=== PATIENT | female | born 1940 | race Caucasian/White ===

== ENCOUNTER 2017-08-07 07:56 | Inpatient (IN) | payer MEDICARE ==
[2017-08-07] VITALS (7 sets, daily range): BP systolic 123–167; BP diastolic 58–90; PULSE 56–71; RESP 14–19; TEMP 97.3–97.9; O2SAT 94–100
[~2017-08-07] VITALS: Ht 167.6 cm; Wt 81.0 kg
--- NOTE | 2017-08-07 08:12 | PD ---
HPI Chief Complaint: Fall Time Seen by Provider: 08:04 Travel History International Travel<30 days: No Contact w/Intl Traveler<30days: No Traveled to known affect area: No History of Present Illness HPI 76 y/o female presents after she states she slipped and fell on water. She states she did not hit her head or blackout. She denies taking blood thinners. She states she did hit her right elbow and is having significant pain there. She denies any other concurrent complaints. Quality pain is sharp. Severity is severe. Pain is worse with movement. She denies other modifying factors. PFSH Past Medical History Narrative Medical Hypertension, high cholesterol, hypothyroid Past Surgical History Narrative Surgical Right elbow Social History Tobacco Use: No Allergies-Medications (Allergen,Severity, Reaction): Coded Allergies: No Known Allergies (Unverified , 08/07/17) Reported Meds & Prescriptions Reported Meds & Active Scripts Active Reported [glaucoma eye gtt] Aspirin Low Dose (Aspirin) 81 Mg Chew 81 Mg CHEW DAILY Atorvastatin (Atorvastatin Calcium) 10 Mg Tab 10 Mg PO HS [unknown bp med] Synthroid (Levothyroxine Sodium) 50 Mcg Tab 50 Mcg PO DAILY Review of Systems Except as stated in HPI: all other systems reviewed are Neg Physical Exam Narrative General: 76 y/o patient in no apparent distress Skin: Warm and dry Eyes: Pupils equal, eomi ENT: no septal hematoma NECK: no pain with palpation, nexus criteria negative Cardiovascular: Regular rate and rhythm Respiratory: Normal respiratory effort noted, clear to auscultation bilaterally Abdomen: soft, nontender, nondistended Back: No step-offs, midline spine nontender with palpation Extremities: Pain with palpation of right elbow, no lacerations over, neurovascularly intact, no pain with palpation of other joints Neuro: awake, alert, sensation and motor grossly intact Data Data Last Documented VS Vital Signs Date Time Temp Pulse Resp B/P (MAP) Pulse Ox O2 Delivery O2 Flow Rate FiO2 08/07/17 09:22 66 14 167/76 (106) 96 Room Air 08/07/17 07:58 97.4 Orders Orders Elbow, Limited (Ap&Lat) (08/07/17 ) Complete Blood Count With Diff (08/07/17 08:49) Iv Access Insert/Monitor (08/07/17 08:49) Oximetry (08/07/17 08:49) Ecg Monitoring (08/07/17 08:49) Morphine Inj (Morphine Inj) (08/07/17 09:00) Ondansetron Inj (Zofran Inj) (08/07/17 09:00) Sodium Chloride 0.9% Flush (Ns Flush) (08/07/17 09:00) Basic Metabolic Panel (Bmp) (08/07/17 08:49) Splint Or Brace Apply/Monitor (08/07/17 09:15) Electrocardiogram (08/07/17 10:09) Chest, Single Ap (08/07/17 10:09) Morphine Inj (Morphine Inj) (08/07/17 10:30) Admit Order (Ed Use Only) (08/07/17 10:44) Labs Laboratory Tests Test 08/07/17 09:04 White Blood Count 7.9 TH/MM3 Red Blood Count 4.67 MIL/MM3 Hemoglobin 14.2 GM/DL Hematocrit 40.7 % Mean Corpuscular Volume 87.2 FL Mean Corpuscular Hemoglobin 30.5 PG Mean Corpuscular Hemoglobin Concent 35.0 % Red Cell Distribution Width 13.6 % Platelet Count 225 TH/MM3 Mean Platelet Volume 8.2 FL Neutrophils (%) (Auto) 63.9 % Lymphocytes (%) (Auto) 28.9 % Monocytes (%) (Auto) 5.5 % Eosinophils (%) (Auto) 1.2 % Basophils (%) (Auto) 0.5 % Neutrophils # (Auto) 5.0 TH/MM3 Lymphocytes # (Auto) 2.3 TH/MM3 Monocytes # (Auto) 0.4 TH/MM3 Eosinophils # (Auto) 0.1 TH/MM3 Basophils # (Auto) 0.0 TH/MM3 CBC Comment DIFF FINAL Differential Comment Blood Urea Nitrogen 17 MG/DL Creatinine 0.94 MG/DL Random Glucose 133 MG/DL Calcium Level 8.7 MG/DL Sodium Level 140 MEQ/L Potassium Level 3.5 MEQ/L Chloride Level 105 MEQ/L Carbon Dioxide Level 28.9 MEQ/L Anion Gap 6 MEQ/L Estimat Glomerular Filtration Rate 58 ML/MIN MDM Medical Decision Making Medical Screen Exam Complete: Yes Emergency Medical Condition: Yes Medical Record Reviewed: Yes (Past history confirmed) Interpretation(s) CBC & BMP Diagram 08/07/17 09:04 Calcium Level 8.7 Last 24 hours Impressions Elbow X-Ray 4/5/18 0000 Signed Impressions: Service Date/Time: August 08:28 - CONCLUSION: 1. There appears to be transcondylar fixation with an osseous screw and 2 osseous pains. 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 2. Superimposed acute fracture through the distal humeral metadiaphysis. Fracture fragments are in bayonet apposition. Godfrey Latham MD Differential Diagnosis Fracture, strain, sprain, dislocation Narrative Course Will check x-ray and reevaluate given xray will place splint, dose with morphine and discuss with orthopedic physician while checking preop blood work Patient updated and agrees to admission for surgery tomorrow Physician Communication Physician Communication dr patel states to admit to medicine and npo after midnight dr marinelli agrees to admit Diagnosis Primary Impression: Closed fracture of right distal humerus Qualified Codes: S42.401A - Unspecified fracture of lower end of right humerus , initial encounter for closed fracture Admitting Information Admitting Physician Requests: Admit Terra Velasquez MD Aug 07, 2017 08:12
--- NOTE | 2017-08-07 08:47 | RADRPT ---
EXAM DATE/TIME: 08/07/2017 08:28 [facility] COMPARISON: No previous studies available for comparison. INDICATIONS : Right elbow pain. Patient fell in the shower this morning. MEDICAL HISTORY : None. SURGICAL HISTORY : Right elbow. ENCOUNTER: Initial ACUITY: 1 day PAIN SCORE: 8/10 LOCATION: Right elbow. FINDINGS: Two view examination of the right elbow demonstrates a transcondylar osseous screw and 2 osseous pain s oriented in a similar direction. Degenerative changes in the elbow joint with loss of joint space a nd marginal spurring. However, there appears to be an acute fracture through the humeral metadiaphysi s with bayonet apposition of the fracture fragments. CONCLUSION: 1. There appears to be transcondylar fixation with an osseous screw and 2 osseous pains. Chronic oste oarthritic changes in the elbow joint itself. 2. Superimposed acute fracture through the distal humeral metadiaphysis. Fracture fragments are in ba yonet apposition. Godfrey Latham MD on August 07, 2017 at 8:43 Board Certified Radiologist. This report was verified electronically.
[2017-08-07] MEDS ORDERED: ONDANSETRON HCL 4 MG/2 ML VIAL IVP ONE (09:00)
[2017-08-07] MEDS ORDERED: SODIUM CHLORIDE 0.9% FLUSH 10 ML FLUSH IVF PRN (09:00)
[2017-08-07] MEDS ORDERED: MORPHINE SULFATE 4 MG/ML INJ IV PUSH ONE ×2 (09:00→10:30)
[2017-08-07] MEDS ORDERED: ATOR10TA15 PO (09:27)
[2017-08-07] MEDS ORDERED: EYE (09:27)
[2017-08-07] MEDS ORDERED: ASPI81CH6 CHEW (09:27)
[2017-08-07] MEDS ORDERED: unknown bp med (09:27)
[2017-08-07] MEDS ORDERED: LEVO.05 PO (09:27)
[2017-08-07 09:34] LABS: BASOPHIL % 0.5 % (0.0-2.0); EOSINOPHIL # 0.1 TH/MM3 (0-0.4); EOSINOPHIL % 1.2 % (0.0-4.0); HEMATOCRIT 40.7 % (35.0-46.0); HEMOGLOBIN 14.2 GM/DL (11.6-15.3); LYMPH % 28.9 % (9.0-44.0); LYMPHOCYTE # 2.3 TH/MM3 (1.0-4.8); MEAN CELL VOLUME 87.2 FL (80.0-100.0); MEAN CORPUSCULAR HEMOGLOBIN 30.5 PG (27.0-34.0); MEAN PLATELET VOLUME 8.2 FL (7.0-11.0); MONO % 5.5 % (0.0-8.0); MONOCYTE # 0.4 TH/MM3 (0-0.9); NEUT % 63.9 % (16.0-70.0); PLATELET COUNT 225 TH/MM3 (150-450); RED BLOOD COUNT 4.67 MIL/MM3 (4.00-5.30); RED CELL DISTRIBUTION WIDTH 13.6 % (11.6-17.2); WHITE BLOOD COUNT 7.9 TH/MM3 (4.0-11.0)
[2017-08-07 09:57] LABS: BICARBONATE 28.9 MEQ/L (21.0-32.0); CALCIUM 8.7 MG/DL (8.5-10.1); CREATININE 0.94 MG/DL (0.50-1.00)
--- NOTE | 2017-08-07 10:51 | RADRPT ---
EXAM DATE/TIME: 08/07/2017 10:12 [facility] COMPARISON: No previous studies available for comparison. INDICATIONS : Evaluate for pneumonia, pneumothorax, and communicable disease. Preop for elbow fracture. MEDICAL HISTORY : None. SURGICAL HISTORY : Right elbow repair. ENCOUNTER: Initial ACUITY: 1 day PAIN SCORE: 9/10 LOCATION: Right elbow FINDINGS: A single view of the chest demonstrates the lungs to be symmetrically aerated without evidence of mas s, infiltrate or effusion. There is some mild indistinctness of the central bronchopulmonary marking s without evidence of peribronchial thickening suggesting an interstitial process. The cardiomediast inal contours are unremarkable. Osseous structures are intact. CONCLUSION: Mild interstitial prominence in the central 3rd of both lungs without evidence of peribronchial thick ening. No evidence of consolidative infiltrates. Giovanni Love MD on August 07, 2017 at 10:48 Board Certified Radiologist. This report was verified electronically.
[2017-08-07] MEDS ORDERED: LACTULOSE SYRUP 20 GM/30 ML CUP PO PRN (13:45)
[2017-08-07] MEDS ORDERED: MORPHINE SULFATE 2 MG/ML SYRINGE IV PUSH PRN (13:45)
[2017-08-07] MEDS ORDERED: MAGNESIUM HYDROXIDE SUSP 30 ML CUP PO PRN (13:45)
[2017-08-07] MEDS ORDERED: MORPHINE SULFATE 4 MG/ML INJ IV PUSH PRN (13:45)
[2017-08-07] MEDS ORDERED: ONDANSETRON HCL 4 MG/2 ML VIAL IVP PRN (13:45)
[2017-08-07] MEDS ORDERED: SENNOSIDES 8.6 MG TAB PO PRN (13:45)
[2017-08-07] MEDS ORDERED: SODIUM CHLORIDE 0.9% FLUSH 10 ML FLUSH IV FLUSH PRN (13:45)
[2017-08-07] MEDS ORDERED: NALOXONE HCL 0.4 MG/ML AMP IV PUSH PRN (13:45)
[2017-08-07] MEDS ORDERED: ACETAMINOPHEN 325 MG TAB PO PRN (13:45)
[2017-08-07] MEDS ORDERED: BISACODYL 10 MG SUPP RECTAL PRN (13:45)
[2017-08-07] MEDS ORDERED: ACETAMINOPHEN/HYDROcodone 325 MG/5 MG TAB PO PRN (15:30)
[2017-08-07] MEDS: ACETAMINOPHEN/HYDROcodone 325 MG/5 MG TAB PO PRN ×2 (16:39→20:32)
--- NOTE | 2017-08-07 20:14 | HHI.HP ---
HPI Service [facility] Primary Care Physician No Primary Care Physician Admission Diagnosis right distal humerus fracture Diagnoses: Chief Complaint: Right elbow pain Travel History International Travel<30 Days: No Contact w/Intl Traveler <30 Da: No Traveled to Known Affected Are: No History of Present Illness This is a 76-year-old female with past medical history significant for hypertension, hypothyroidism and hyperlipidemia who presents to [facility] after she slipped and fell on the wet floor. The patient states that she slipped on the wet floor and fell over her right elbow. The patient denies hitting her head or losing consciousness. The patient landed on her right arm elbow and had immediate severe, throbbing, nonradiating pain associated with swelling in the right elbow. The patient was seen in the emergency department and pain medication administered there, x-rays revealed a right distal humerus fracture. The patient denies chest pain, shortness of breath, fevers, chills, cough, dysuria, nausea, vomiting. Review of Systems As per HPI, other systems reviewed by me and negative Past Family Social History Past Medical History Hypertension Hyperlipidemia Hypothyroidism Past Surgical History Right elbow ORIF Reported Medications Reported Meds & Active Scripts Active Hydrocodone-Acetaminophen 10-325 mg Tab 1 Tab PO Q4H PRN Calcium 600+D 200 (Calcium Carbonate-Vitamin D) 600-200 Mg-Unit Tab 1 Tab PO BID Ergocalciferol 50,000 Unit Cap 50,000 Units PO Q7D Reported Latanoprost Opth Drops (Latanoprost) 0.005% Drops 1 Drop EACH EYE HS Refrigerate until opened. Aspirin Low Dose (Aspirin) 81 Mg Chew 81 Mg CHEW DAILY Atorvastatin (Atorvastatin Calcium) 10 Mg Tab 10 Mg PO HS [unknown bp med] Synthroid (Levothyroxine Sodium) 50 Mcg Tab 50 Mcg PO DAILY Allergies: Coded Allergies: No Known Allergies (Unverified , 08/07/17) Active Ordered Medications Current Medications Medications (Trade) Dose Ordered Sig/Froylan Route Start Time Stop Time Status Last Admin (NS Flush) 2 ml UNSCH PRN IV FLUSH 08/07/17 13:45 (NS Flush) 2 ml BID IV FLUSH 4/5/18 21:00 08/08/17 08:01 (Tylenol) 650 mg Q4H PRN PO 08/07/17 13:45 (Zofran Inj) 4 mg Q6H PRN IVP 08/07/17 13:45 (Narcan Inj) 0.4 mg UNSCH PRN IV PUSH 08/07/17 13:45 (Alicia-Colace) 1 tab BID PO 08/07/17 21:00 08/07/17 20:32 (Milk Of Magnesia Liq) 30 ml Q12H PRN PO 08/07/17 13:45 (Senokot) 17.2 mg Q12H PRN PO 08/07/17 13:45 (Dulcolax Supp) 10 mg DAILY PRN RECTAL 08/07/17 13:45 (Lactulose Liq) 30 ml DAILY PRN PO 08/07/17 13:45 (Lipitor) 10 mg HS PO 08/07/17 21:00 08/07/17 22:21 (Synthroid) 50 mcg DAILY@0600 PO 08/08/17 06:00 08/08/17 05:15 Lactated Ringer's 1,000 ml @ 30 mls/hr Q24H PRN IV 08/08/17 00:30 08/11/17 00:29 Sodium Chloride 500 ml @ 30 mls/hr [id number] PRN IV 08/08/17 00:30 08/11/17 00:29 (Betadine 5% Antisepsis Kit) 1 applic [employer] PRN EACH NARE 08/08/17 00:30 08/11/17 00:29 (Chlorhexidine 2% Cloth) 3 pack [employer] PRN TOPICAL 08/08/17 00:30 08/11/17 00:29 (Peerless 10-325 Mg) 1 tab Q3H PRN PO 08/08/17 12:15 (Morphine Inj) 4 mg Q3H PRN IV PUSH 08/08/17 14:00 (Oscal-D 250-125) 250 mg Q12HR PO 08/08/17 21:00 (Vitamin D3) 1,000 units DAILY PO 08/09/17 09:00 Miscellaneous Information ALL NURSING DEPARTME... UNSCH PRN .XX 08/08/17 12:45 08/09/17 12:44 Cefazolin Sodium 2000 mg/Sodium Chloride 120 ml @ 240 mls/hr Q8H IV 08/08/17 18:00 08/09/17 10:29 Family History Patient's father had prostate cancer. Patient had a brother that from colon cancer. Different brother from stomach cancer. Social History Patient denies smoking. The patient drinks occasional alcohol. The patient denies any illicit drug use. Physical Exam Vital Signs Vital Signs Date Time Temp Pulse Resp B/P (MAP) Pulse Ox O2 Delivery O2 Flow Rate FiO2 08/07/17 17:39 18 08/07/17 14:48 97.3 64 18 129/61 (83) 96 08/07/17 14:29 08/07/17 14:17 97.7 71 19 163/87 (112) 100 Room Air 2.00 08/07/17 09:22 66 14 167/76 (106) 96 Room Air 08/07/17 08:06 97 Room Air 08/07/17 08:06 69 18 98 Room Air 08/07/17 07:58 97.4 70 16 148/90 (109) Physical Exam GENERAL: This is a well-nourished, well-developed patient, in no apparent distress. SKIN: No rashes, ecchymoses or lesions. Cool and dry. HEAD: Atraumatic. Normocephalic. No temporal or scalp tenderness. EYES: Pupils equal round and reactive. Extraocular motions intact. No scleral icterus. No injection or drainage. ENT: Nose without bleeding, purulent drainage or septal hematoma. Throat without erythema, tonsillar hypertrophy or exudate. Uvula midline. Airway patent. NECK: Trachea midline. No JVD or lymphadenopathy. Supple, nontender, no meningeal signs. CARDIOVASCULAR: Regular rate and rhythm without murmurs, gallops, or rubs. RESPIRATORY: Clear to auscultation. Breath sounds equal bilaterally. No wheezes , rales, or rhonchi. GASTROINTESTINAL: Abdomen soft, non-tender, nondistended. No hepato-splenomegaly , or palpable masses. No guarding. MUSCULOSKELETAL: Right arm is swollen and wrapped. The patient has intact sensation to her fingers and good capillary refill in all fingers. Patient has pain on right elbow motion. Other extremities without clubbing, cyanosis, or edema. No joint tenderness, effusion, or edema noted. No calf tenderness. Negative Homans sign bilaterally. NEUROLOGICAL: Awake and alert. Cranial nerves II through XII intact. Motor and sensory grossly within normal limits. Five out of 5 muscle strength in all muscle groups. Normal speech. Laboratory Laboratory Tests Test 08/07/17 09:04 White Blood Count 7.9 Red Blood Count 4.67 Hemoglobin 14.2 Hematocrit 40.7 Mean Corpuscular Volume 87.2 Mean Corpuscular Hemoglobin 30.5 Mean Corpuscular Hemoglobin Concent 35.0 Red Cell Distribution Width 13.6 Platelet Count 225 Mean Platelet Volume 8.2 Neutrophils (%) (Auto) 63.9 Lymphocytes (%) (Auto) 28.9 Monocytes (%) (Auto) 5.5 Eosinophils (%) (Auto) 1.2 Basophils (%) (Auto) 0.5 Neutrophils # (Auto) 5.0 Lymphocytes # (Auto) 2.3 Monocytes # (Auto) 0.4 Eosinophils # (Auto) 0.1 Basophils # (Auto) 0.0 CBC Comment DIFF FINAL Differential Comment Blood Urea Nitrogen 17 Creatinine 0.94 Random Glucose 133 Calcium Level 8.7 Sodium Level 140 Potassium Level 3.5 Chloride Level 105 Carbon Dioxide Level 28.9 Anion Gap 6 Estimat Glomerular Filtration Rate 58 Result Diagram: 08/07/17 0904 08/07/17 0904 Imaging Last Impressions Chest X-Ray 08/07/17 1009 Signed Impressions: Service Date/Time: August 10:12 - CONCLUSION: Mild interstitial prominence in the central 3rd of both lungs without evidence of peribronchial thickening. No evidence of consolidative infiltrates. Giovanni Love MD Elbow X-Ray 08/07/17 0000 Signed Impressions: Service Date/Time: August 08:28 - CONCLUSION: 1. There appears to be transcondylar fixation with an osseous screw and 2 osseous pains. 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 2. Superimposed acute fracture through the distal humeral metadiaphysis. Fracture fragments are in bayonet apposition. MD Sintia Cameron VTE Risk Assessment Caprini VTE Risk Assessment: Mod/High Risk (score >= 2) Caprini Risk Assessment Model Point Value = 1 Point Value = 2 Point Value = 3 Point Value = 5 Age 41-60 Minor surgery BMI > 25 kg/m2 Swollen legs Varicose veins or History of unexplained or recurrent spontaneous Oral contraceptives or hormone replacement Sepsis (< 1 month) Serious lung disease, including pneumonia (< 1 month) Abnormal pulmonary function Acute myocardial infarction Congestive heart failure (< 1 month) History of inflammatory bowel disease Medical patient at bed rest Age 61-74 Arthroscopic surgery Major open surgery (> 45 min) Laparoscopic surgery (> 45 min) Malignancy Confined to bed (> 72 hours) Immobilizing plaster cast Central venous access Age >= 75 History of VTE Family history of VTE Factor V Leiden Prothrombin [id number] Lupus anticoagulant Anticardiolipin antibodies Elevated serum homocysteine Heparin-induced thrombocytopenia Other congenital or acquired thrombophilia Stroke (< 1 month) Elective arthroplasty Hip, pelvis, or leg fracture Acute spinal cord injury (< 1 month) Prophylaxis Regimen Total Risk Factor Score Risk Level Prophylaxis Regimen 0-1 Low Early ambulation 2 Moderate Order ONE of the following: *Sequential Compression Device (SCD) *Heparin 5000 units SQ BID 3-4 Higher Order ONE of the following medications: *Heparin 5000 units SQ TID *Enoxaparin/Lovenox 40 mg SQ daily (WT < 150 kg, CrCl > 30 mL/min) *Enoxaparin/Lovenox 30 mg SQ daily (WT < 150 kg, CrCl > 10-29 mL/min) *Enoxaparin/Lovenox 30 mg SQ BID (WT < 150 kg, CrCl > 30 mL/min) AND/OR *Sequential Compression Device (SCD) 5 or more Highest Order ONE of the following medications: *Heparin 5000 units SQ TID (Preferred with Epidurals) *Enoxaparin/Lovenox 40 mg SQ daily (WT < 150 kg, CrCl > 30 mL/min) *Enoxaparin/Lovenox 30 mg SQ daily (WT < 150 kg, CrCl > 10-29 mL/min) *Enoxaparin/Lovenox 30 mg SQ BID (WT < 150 kg, CrCl > 30 mL/min) AND *Sequential Compression Device (SCD) Assessment and Plan Problem List: (1) Closed fracture of right distal humerus ICD Code: S42.401A - Unspecified fracture of lower end of right humerus, initial encounter for closed fracture Status: Acute Plan: Orthopedic surgery consulted. Keep n.p.o. at midnight. 4 OR in a.m. We will provide pain control with oral opiates and IV morphine. (2) Hypothyroidism ICD Code: E03.9 - Hypothyroidism, unspecified Plan: Continue levothyroxine. Follow-up TSH as an outpatient. (3) Glaucoma ICD Code: H40.9 - Unspecified glaucoma Plan: Seems to be stable. Continue latanoprost eyedrops. (4) Hyperlipidemia ICD Code: E78.5 - Hyperlipidemia, unspecified Plan: Continue statin. Lipid profile could be checked and followed up as an outpatient. (5) HTN (hypertension) ICD Code: I10 - Essential (primary) hypertension Plan: The patient states that she was previously on medications, however she was taken off because her blood pressure was doing so well of antihypertensive medications. Assessment and Plan DVT prophylaxis: SCDs, no chemoprophylaxis given upcoming surgery. Code Status Full code Discussed Condition With Patient, ED physician Physician Certification 2 Midnight Certification Type: Admission for Inpatient Services Order for Inpatient Services The services are ordered in accordance with Medicare regulations or non- Medicare payer requirements, as applicable. In the case of services not specified as inpatient-only, they are appropriately provided as inpatient services in accordance with the 2-midnight benchmark. Estimated LOS (days): 2 days is the estimated time the patient will need to remain in the hospital, assuming treatment plan goals are met and no additional complications. Post-Hospital Plan: Not yet determined Problem Qualifiers (1) Closed fracture of right distal humerus: Qualified Codes: S42.401A - Unspecified fracture of lower end of right humerus , initial encounter for closed fracture (2) HTN (hypertension): Qualified Codes: I10 - Essential (primary) hypertension Carter Uriostegui MD Aug 07, 2017 20:14
--- NOTE | 2017-08-07 20:28 | EKG ---
Date Performed: 08/07/2017 Time Performed: 11:58:31 PTAGE: 76 years EKG: Sinus rhythm NONSPECIFIC ST & T-WAVE ABNORMALITY BORDERLINE ECG NO PREVIOUS TRACING DOCTOR: Danny Solorio Interpretating Date/Time 08/07/2017 20:27:21
[2017-08-07] MEDS: SODIUM CHLORIDE 0.9% FLUSH 10 ML FLUSH IV FLUSH SCH (20:32)
[2017-08-07] MEDS: DOCUSATE SODIUM 50 MG/SENNA 8.6 MG TAB PO SCH (20:32)
[2017-08-07] MEDS ORDERED: LATA0.002 EACH EYE (21:09)
[2017-08-07] MEDS: ATORVASTATIN 10 MG TAB PO SCH (22:21)
[2017-08-08] MEDS: ACETAMINOPHEN/HYDROcodone 325 MG/5 MG TAB PO PRN (00:20)
[2017-08-08] MEDS ORDERED: SODIUM CHLORID 0.9% 500 ML IV PRN (00:30)
[2017-08-08] MEDS ORDERED: POVIDONE IODINE 5% (ANTISEPSIS KIT) 4 APPLICATIONS EACH NARE PRN (00:30)
[2017-08-08] MEDS ORDERED: LACTATED RINGER'S 1000 ML IV PRN (00:30)
[2017-08-08] MEDS ORDERED: CHLORHEXIDINE GLUCONATE 2 % 1 PACK (2 CLOTHS) TOPICAL PRN (00:30)
[2017-08-08] MEDS: LEVOTHYROXINE SODIUM 50 MCG TAB PO SCH (05:15)
[2017-08-08 06:05] LABS: ALBUMIN 3.8 GM/DL (3.4-5.0); AST (GOT) 57 U/L (15-37); BICARBONATE 27.6 MEQ/L (21.0-32.0); BLOOD UREA NITROGEN 21 MG/DL (7-18); CALCIUM 8.9 MG/DL (8.5-10.1); CHLORIDE 101 MEQ/L (98-107); CREATININE 0.87 MG/DL (0.50-1.00); GLOMERULAR FILTRATION RATE 63 ML/MIN (>89); GLUCOSE,RANDOM 115 MG/DL (74-106); SODIUM (NA) 138 MEQ/L (136-145)
[2017-08-08 06:06] LABS: ALT (GPT) 36 U/L (10-53)
[2017-08-08 06:09] LABS: ALKALINE PHOSPHATASE 79 U/L (45-117); TOTAL BILIRUBIN ADULT 0.5 MG/DL (0.2-1.0)
[2017-08-08] MEDS: DOCUSATE SODIUM 50 MG/SENNA 8.6 MG TAB PO SCH ×2 (07:30→21:13)
[2017-08-08 07:45] VITALS: BP 140/61; PULSE 69; RESP 18; TEMP 97.5; O2SAT 95
[2017-08-08] MEDS: SODIUM CHLORIDE 0.9% FLUSH 10 ML FLUSH IV FLUSH SCH ×2 (08:01→21:00)
[2017-08-08] MEDS ORDERED: APREPITANT 40 MG CAP ONE (10:21)
[2017-08-08] MEDS ORDERED: ACETAMINOPHEN 1000 MG/100 ML 100 ML IV ONE (10:26)
--- NOTE | 2017-08-08 10:26 | PD.ORT.PN ---
Subjective Subjective Remarks Fall at home and bathroom. Landed on her right arm and had significant tenderness to right elbow. Previous surgery for her elbow with hardware retained. She has intact sensation distally over the radial ulnar median nerve distributions. Objective Vitals Vital Signs Date Time Temp Pulse Resp B/P (MAP) Pulse Ox O2 Delivery O2 Flow Rate FiO2 08/08/17 08:12 Room Air 08/08/17 07:45 97.5 69 18 140/61 (87) 95 08/07/17 23:55 97.5 56 16 124/60 (81) 95 08/07/17 21:13 Nasal Cannula 4.00 08/07/17 19:45 97.9 66 16 123/58 (79) 94 08/07/17 17:39 18 08/07/17 14:48 97.3 64 18 129/61 (83) 96 08/07/17 14:29 08/07/17 14:17 97.7 71 19 163/87 (112) 100 Room Air 2.00 I/O 08/07/17 08/07/17 08/07/17 08/08/17 08/08/17 08/08/17 07:00 15:00 23:00 07:00 15:00 23:00 Intake Total 360 ml Balance 360 ml Intake Oral 360 ml # Voids 1 # Bowel Movements 0 Result Diagram: 08/07/17 0904 08/08/17 0457 Imaging Last 72 hours Impressions Chest X-Ray 08/07/17 1009 Signed Impressions: Service Date/Time: August 10:12 - CONCLUSION: Mild interstitial prominence in the central 3rd of both lungs without evidence of peribronchial thickening. No evidence of consolidative infiltrates. Giovanni Love MD Elbow X-Ray 08/07/17 0000 Signed Impressions: Service Date/Time: August 08:28 - CONCLUSION: 1. There appears to be transcondylar fixation with an osseous screw and 2 osseous pains. 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 2. Superimposed acute fracture through the distal humeral metadiaphysis. Fracture fragments are in bayonet apposition. Godfrey Latham MD Objective Remarks Right upper extremity: No pain to palpation of shoulder. Long-arm posterior splint in place. Intact sensation distally over radial ulnar and median nerve distributions with good capillary refills. She is able to fully extend her fingers and she is able to make a fist. Assessment & Plan Assessment and Plan Right distal humerus fracture with retained hardware from previous fractures. We will plan on surgery today with removal of previous hardware that was formed in surgery approximately 20 years ago. We'll plan an open reduction internal fixation of the right distal humerus. She understands that our goal is to obtain range of motion that she had prior to this surgery which is approximately 20 short of extension and 120 of flexion. She will sign consents. Nothing by mouth. After surgery she will maintain splint. Nonweightbearing right upper extremity sling when out of bed She'll plan for discharge planning to home Follow Dr. Parekh or [place] in 2 weeks Surendra De Los Santos Jr. Aug 08, 2017 10:26
[2017-08-08] MEDS ORDERED: ceFAZolin INJ 1,000 MG VIAL ONE (10:57)
[2017-08-08] MEDS ORDERED: VANCOMYCIN HCL 1000 MG VIAL ONE (10:57)
--- NOTE | 2017-08-08 11:17 | MB ---
cc: Devin Alcaraz MD DATE: 08/08/2017 REASON FOR CONSULTATION: Right distal humerus fracture. HISTORY OF PRESENT ILLNESS: Guera is a 76-year-old female. She slipped and fell on a wet floor. She did not hit her head. She describes a mechanical fall. She had no dizziness, syncope or loss of consciousness. She landed on her right arm and elbow. She had immediate right arm pain and swelling. She presented in the emergency room where x-rays revealed a right distal humerus fracture. She is currently awake and alert on the orthopedic floor. She has a history of right distal humerus fracture approximately 20 years ago, treated with open reduction, internal fixation. She had limited motion secondary to this injury. PAST MEDICAL HISTORY: Illnesses: Hypertension, high cholesterol and hypothyroidism. PAST SURGICAL HISTORY: Right elbow ORIF. ALLERGIES: NO KNOWN DRUG ALLERGIES. MEDICATIONS: Include aspirin, atorvastatin, Synthroid. FAMILY HISTORY: Noncontributory. She denies any familial medical problems. REVIEW OF SYSTEMS: The patient denies headache, visual changes, neck pain, chest pain, shortness of breath, abdominal pain, nausea, vomiting, recent weight loss, fevers or chills, numbness or tingling of extremities, or bowel or bladder incontinence. She complains of right elbow pain. Pain is worse with movement. LABORATORY DATA: The patient has a white blood cell count of 7.9, hematocrit of 40.7, platelet count of 225. BUN is 21 and creatinine 0.87. X-RAYS: X-rays of the right elbow were reviewed. X-rays reveal a displaced right elbow supracondylar fracture. There is hardware in place from previous surgery. She has mild to moderate posttraumatic arthritis. PHYSICAL EXAMINATION: GENERAL: The patient is a pleasant 76-year-old female. She is awake and alert. She appears well developed and well nourished. She is in no acute distress. VITAL SIGNS: Temperature 97.5, pulse 69, respirations 18, blood pressure 140/61, O2 saturation 95% on room air. HEAD: The patient is normocephalic. Pupils are equal. NECK: Soft, nontender. Trachea is midline. ABDOMEN: Soft, nontender, nondistended. EXTREMITIES: Examination of right arm reveals no tenderness about her shoulder, wrist or fingers. She has intact sensation to all fingers. She has good cap refill in all fingers. Skin is intact. She has pain with any elbow motion. She is tender to palpation over the distal humerus. Femoral compartments are soft. Examination of left arm reveals no pain with shoulder, elbow and wrist motion. She has intact sensation in all fingers. She has good cap refill in all fingers. Skin is intact. Radial pulses palpable. Examination of bilateral lower extremities reveals no pain with hip, knee or ankle motion. Skin is intact. Dorsalis pedis pulses are palpable. Sensation is intact to both feet. IMPRESSION: 1. Displaced right distal humerus fracture. 2. Retained hardware, right distal humerus. 3. Posttraumatic arthritis, right elbow. 4. Hypertension. 5. Hypothyroidism. PLAN: Treatment options were discussed with the patient. At this point, I would recommend surgery for possible removal of deep hardware followed by open reduction and internal fixation of right distal humerus. Risks of surgery include bleeding, infection, injuries to arteries, nerves or blood vessels, nonunion, malunion, painful hardware, weakness or numbness of hand, as well as medical complications associated with anesthesia. She states that she previously had her ulnar nerve moved because she had numbness and tingling of her hand. I will plan on surgery today. All questions were answered. A mid-level provider in my office, nurse practitioner or PA, may see this patient on a follow-up basis and continue to implement the objective of this plan including: Starting or adjusting medications, injections of muscle, tendon, bursa or joints, cast application, orthotic or brace application, physical therapy, further radiographic studies including x-ray, MRI, CT, ultrasounds or bone scan, vascular studies, neurologic studies, or other specialist consultations, and proceeding with surgical management as appropriate. MD TASHA Herring/TRISH , 10:53 AM , 11:16 AM
[2017-08-08] MEDS ORDERED: GLYCOPYRROLATE 1 MG/5 ML SYRINGE IV PUSH ONE (12:00)
[2017-08-08] MEDS ORDERED: NEOSTIGMINE 5 MG/5 ML SYRINGE IV PUSH ONE (12:00)
[2017-08-08] MEDS ORDERED: DEXAMETHASONE SOD PHOS 4 MG/ML VIAL IV ONE (12:00)
[2017-08-08] MEDS ORDERED: ONDANSETRON HCL 4 MG/2 ML VIAL IV ONE (12:00)
[2017-08-08] MEDS ORDERED: ROCURONIUM INJ 50 MG/5 ML SYRINGE IV PUSH ONE (12:00)
[2017-08-08] MEDS ORDERED: LIDOCAINE HCL 1% PF 5 ML SYRINGE OTHER ONE (12:00)
[2017-08-08] MEDS ORDERED: PROPOFOL 200 MG/20 ML AMP IV ONE (12:00)
[2017-08-08] MEDS ORDERED: ePHEDrine/NS 25 MG/5 ML SYRINGE IV ONE (12:00)
[2017-08-08] MEDS ORDERED: ACETAMINOPHEN/HYDROcodone 325 MG/10 MG TAB PO PRN (12:15)
[2017-08-08] MEDS ORDERED: Post-op Orders (for Pharmacy) XX ONE (12:15)
--- NOTE | 2017-08-08 12:28 | PD.OP ---
cc: Devin Parekh MD Operative Report Date of Surgery: Aug 08, 2017 Preoperative Diagnosis: Displaced right distal humerus fracture, retained hardware right distal humerus Postoperative Diagnosis: Procedure: Removal deep hardware right distal humerus, open reduction internal fixation right distal humerus Anesthesia: General Surgeon: Devin Parekh Order Processing Manager(s): DAYAMI Colindres PA-C The surgical procedure was assisted by my physician assistant manager. My P.A. presence was necessary throughout this case for the manipulation and positioning of the surgical extremity. My P.A. was assisting me throughout the duration of this procedure. The skill set of a physician assistant manager was medically necessary to complete this procedure. During the surgical case the surgical services coordinator was working at the back table and the physician assistant manager was directly assisting me. Operation and Findings: Implants used: Synthes Plan of activity: Passive range of motion right elbow Patient was seen and evaluated preoperatively. Treatment options were discussed regarding distal humerus fracture including surgical and nonsurgical treatments. After detailed discussion of risk and benefits of procedure patient wishes to proceed with surgery. Risks of surgery include bleeding, infection, nonunion, malunion, painful hardware, loss of motion of shoulder and elbow, weakness and numbness of arm, ulnar nerve injury as well as medical competitions including blood clots stroke and . Patient was brought to operating room and placed on the OR table. GETA was administered by anesthesiologist. Patient was positioned in lateral decubitus position. Extremities were well-padded. Axillary roll was placed. Operative arm and shoulder were prepped with alcohol followed by Hibiclens and draped usual sterile fashion. Timeout procedure was performed. IV antibiotics were given prior to incision. A standard posterior approach was utilized. Subcutaneous tissues was dissected with Bovie. The lateral border of the triceps was elevated off of the distal humerus. Fracture site was visualized. Next, the ulnar nerve was identified and protected throughout the procedure. The nerve was intact and was in a transposed position from prior surgery. The fracture was identified along the medial distal humerus. Soft tissue was removed from the fracture site. Fracture site was cleaned with curettes. Attention was now turned towards removal of deep hardware. The large screw was identified under fluoroscopy. There was bone over the screw head. Curettes were used to debride bone over the screw head. The screw was now visualized and removed. Next attention was turned towards fracture reduction. the fracture was reduced using fracture tenaculums. Multiplanar fluoroscopy confirmed excellent of fracture. Medial and lateral Synthes distal humerus plates were selected. The medial plate was provisionally held the bone with K wires. 3.5 cortical screws were placed to compress plate to bone. Multiple 2.7 locking screws were placed distally. Care was taken to keep screws from penetrating the articular surface. Multiple screws were placed in each side of the fracture. All screws were predrilled and premeasured for appropriate length. Next the lateral plate was placed along the posterior lateral humerus. Plate was provisionally held to bone with K wires. 3.5 cortical screws were used to compress plate to bone. Additional 2.7 locking screws were placed distally. K wires were removed. Final fluoroscopy revealed excellent alignment of fracture with well-placed hardware. Incision was thoroughly irrigated. Fascia was closed with #1 Vicryl , subcutaneous tissues closed with 3-0 Vicryl, and skin was closed with peña. Sterile dressings were applied. Needle and sponge counts were correct. Patient was placed into a sling, and then transferred to recovery room in stable condition Devin Parekh MD Aug 08, 2017 12:28
[2017-08-08] MEDS ORDERED: DO NOT ADM ANY ANTICOAGULANT DRUGS PRN (12:45)
[2017-08-08] MEDS ORDERED: HYDR-3583 PO (12:48)
[2017-08-08] MEDS ORDERED: VITA500012 PO (12:48)
[2017-08-08] MEDS ORDERED: CALCTAB19 PO (12:48)
--- NOTE | 2017-08-08 12:55 | PD.ORT.PN ---
Subjective Subjective Remarks Transferred to PACU in stable condition Objective Vitals Vital Signs Date Time Temp Pulse Resp B/P (MAP) Pulse Ox O2 Delivery O2 Flow Rate FiO2 08/08/17 08:12 Room Air 08/08/17 07:45 97.5 69 18 140/61 (87) 95 08/07/17 23:55 97.5 56 16 124/60 (81) 95 08/07/17 21:13 Nasal Cannula 4.00 08/07/17 19:45 97.9 66 16 123/58 (79) 94 08/07/17 17:39 18 08/07/17 14:48 97.3 64 18 129/61 (83) 96 08/07/17 14:29 08/07/17 14:17 97.7 71 19 163/87 (112) 100 Room Air 2.00 I/O 08/07/17 08/07/17 08/07/17 08/08/17 08/08/17 08/08/17 07:00 15:00 23:00 07:00 15:00 23:00 Intake Total 360 ml 500 ml Output Total 50 ml Balance 360 ml 450 ml Intake Oral 360 ml IV Total 500 ml Output Estimated Blood Loss 50 ml # Voids 1 # Bowel Movements 0 Result Diagram: 08/07/17 0904 08/08/17 0457 Imaging Last 72 hours Impressions Chest X-Ray 08/07/17 1009 Signed Impressions: Service Date/Time: August 10:12 - CONCLUSION: Mild interstitial prominence in the central 3rd of both lungs without evidence of peribronchial thickening. No evidence of consolidative infiltrates. Giovanni Love MD Elbow X-Ray 08/07/17 0000 Signed Impressions: Service Date/Time: August 08:28 - CONCLUSION: 1. There appears to be transcondylar fixation with an osseous screw and 2 osseous pains. 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 2. Superimposed acute fracture through the distal humeral metadiaphysis. Fracture fragments are in bayonet apposition. Godfrey Latham MD Objective Remarks Right upper extremity: Clean dry dressings intact. Cradle sling in place. Distally intact sensation and good capillary refills Assessment & Plan Assessment and Plan Right distal humerus fracture removal of hardware and open reduction internal fixation POD 0 . Nonweightbearing right upper extremity sling when out of bed Passive and active assist range of motion of the elbow Plan for possible discharge tomorrow if pain is controlled Follow Dr. Parekh or PA in 2 weeks Surendra De Los Santos Jr. Aug 08, 2017 12:55
[2017-08-08] MEDS ORDERED: *morphine SULFATE 4 MG/ML PERIprocedure ONLY ONE ×3 (13:10→13:22)
[2017-08-08] MEDS ORDERED: MORPHINE SULFATE 4 MG/ML INJ IV PUSH PRN (14:00)
--- NOTE | 2017-08-08 14:17 | RADRPT ---
EXAM DATE/TIME: 08/08/2017 11:59 [facility] COMPARISON: No previous studies available for comparison. INDICATIONS : ORIF humerus. MEDICAL HISTORY : None. SURGICAL HISTORY : Elbow surgery. ENCOUNTER: Initial ACUITY: 1 day PAIN SCORE: Non-responsive. LOCATION: Right Distal humerus. FINDINGS: 3 views were recorded digitally in the operating room using C-arm during placement of multiple plates and pins in the distal humerus. CONCLUSION: Intraoperative images. Giovanni Love MD on August 08, 2017 at 14:14 Board Certified Radiologist. This report was verified electronically.
[2017-08-08 15:43] VITALS: BP 128/65; PULSE 62; RESP 18; TEMP 97.3; O2SAT 94
--- NOTE | 2017-08-08 17:06 | HHI.PR ---
Subjective Remarks The patient just returned from OR. The patient denies nausea, vomiting or abdominal pain Denies chest pain or shortness of breath Patient is a febrile. Has pain on right shoulder dated 09/11. Objective Vitals Vital Signs Date Time Temp Pulse Resp B/P (MAP) Pulse Ox O2 Delivery O2 Flow Rate FiO2 08/08/17 15:43 97.3 62 18 128/65 (86) 94 08/08/17 14:52 Nasal Cannula 1.00 08/08/17 13:45 63 16 132/69 (90) 95 Nasal Cannula 2 08/08/17 13:30 62 15 135/72 (93) 96 Nasal Cannula 2 08/08/17 13:15 64 12 145/72 (96) 100 Nasal Cannula 2 08/08/17 13:00 71 17 146/72 (96) 93 Nasal Cannula 2 08/08/17 12:42 97.4 80 16 128/63 (84) 100 Nasal Cannula 2 08/08/17 08:12 Room Air 08/08/17 07:45 97.5 69 18 140/61 (87) 95 08/07/17 23:55 97.5 56 16 124/60 (81) 95 08/07/17 21:13 Nasal Cannula 4.00 08/07/17 19:45 97.9 66 16 123/58 (79) 94 08/07/17 17:39 18 I/O 08/07/17 08/07/17 08/07/17 08/08/17 08/08/17 08/08/17 07:00 15:00 23:00 07:00 15:00 23:00 Intake Total 360 ml 500 ml Output Total 50 ml Balance 360 ml 450 ml Intake Oral 360 ml IV Total 500 ml Output Estimated Blood Loss 50 ml # Voids 1 # Bowel Movements 0 Result Diagram: 08/07/17 0904 08/08/17 0457 Imaging Last Impressions Humerus X-Ray 08/08/17 0000 Signed Impressions: Service Date/Time: Tuesday, August 08, 2017 11:59 - CONCLUSION: Intraoperative images. Giovanni Love MD Chest X-Ray 08/07/17 1009 Signed Impressions: Service Date/Time: August 10:12 - CONCLUSION: Mild interstitial prominence in the central 3rd of both lungs without evidence of peribronchial thickening. No evidence of consolidative infiltrates. Giovanni Love MD Elbow X-Ray 08/07/17 0000 Signed Impressions: Service Date/Time: August 08:28 - CONCLUSION: 1. There appears to be transcondylar fixation with an osseous screw and 2 osseous pains. 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 2. Superimposed acute fracture through the distal humeral metadiaphysis. Fracture fragments are in bayonet apposition. Godfrey Latham MD Objective Remarks GENERAL: This is a well-nourished, well-developed patient, in no apparent distress. SKIN: No rashes, ecchymoses or lesions. Cool and dry. HEAD: Atraumatic. Normocephalic. No temporal or scalp tenderness. EYES: Pupils equal round and reactive. Extraocular motions intact. No scleral icterus. No injection or drainage. ENT: Nose without bleeding, purulent drainage or septal hematoma. Throat without erythema, tonsillar hypertrophy or exudate. Uvula midline. Airway patent. NECK: Trachea midline. No JVD or lymphadenopathy. Supple, nontender, no meningeal signs. CARDIOVASCULAR: Regular rate and rhythm without murmurs, gallops, or rubs. RESPIRATORY: Clear to auscultation. Breath sounds equal bilaterally. No wheezes , rales, or rhonchi. GASTROINTESTINAL: Abdomen soft, non-tender, nondistended. No hepato-splenomegaly , or palpable masses. No guarding. MUSCULOSKELETAL: Right arm is swollen and wrapped. The patient has intact sensation to her fingers and good capillary refill in all fingers. Patient has pain on right elbow motion. Other extremities without clubbing, cyanosis, or edema. No joint tenderness, effusion, or edema noted. No calf tenderness. Negative Homans sign bilaterally. NEUROLOGICAL: Awake and alert. Cranial nerves II through XII intact. Motor and sensory grossly within normal limits. Five out of 5 muscle strength in all muscle groups. Normal speech. Procedures Removal deep hardware right distal humerus, open reduction internal fixation right distal humerus. Medications and IVs Current Medications Medications (Trade) Dose Ordered Sig/Froylan Route Start Time Stop Time Status Last Admin (NS Flush) 2 ml UNSCH PRN IV FLUSH 08/07/17 13:45 (NS Flush) 2 ml BID IV FLUSH 08/07/17 21:00 08/08/17 08:01 (Tylenol) 650 mg Q4H PRN PO 08/07/17 13:45 (Zofran Inj) 4 mg Q6H PRN IVP 08/07/17 13:45 (Narcan Inj) 0.4 mg UNSCH PRN IV PUSH 08/07/17 13:45 (Alicia-Colace) 1 tab BID PO 08/07/17 21:00 08/07/17 20:32 (Milk Of Magnesia Liq) 30 ml Q12H PRN PO 08/07/17 13:45 (Senokot) 17.2 mg Q12H PRN PO 08/07/17 13:45 (Dulcolax Supp) 10 mg DAILY PRN RECTAL 08/07/17 13:45 (Lactulose Liq) 30 ml DAILY PRN PO 08/07/17 13:45 (Lipitor) 10 mg HS PO 08/07/17 21:00 08/07/17 22:21 (Synthroid) 50 mcg DAILY@0600 PO 08/08/17 06:00 08/08/17 05:15 Lactated Ringer's 1,000 ml @ 30 mls/hr Q24H PRN IV 08/08/17 00:30 08/11/17 00:29 Sodium Chloride 500 ml @ 30 mls/hr [id number] PRN IV 08/08/17 00:30 08/11/17 00:29 (Betadine 5% Antisepsis Kit) 1 applic [employer]PERATOR PRN EACH NARE 08/08/17 00:30 08/11/17 00:29 (Chlorhexidine 2% Cloth) 3 pack [employer] OPERATOR PRN TOPICAL 08/08/17 00:30 08/11/17 00:29 ([place] 10-325 Mg) 1 tab Q3H PRN PO 08/08/17 12:15 (Morphine Inj) 4 mg Q3H PRN IV PUSH 08/08/17 14:00 (Oscal-D 250-125) 250 mg Q12HR PO 08/08/17 21:00 (Vitamin D3) 1,000 units DAILY PO 08/09/17 09:00 Miscellaneous Information ALL NURSING DEPARTME... UNSCH PRN .XX 08/08/17 12:45 08/09/17 12:44 Cefazolin Sodium 2000 mg/Sodium Chloride 120 ml @ 240 mls/hr Q8H IV 08/08/17 18:00 08/09/17 10:29 (Drisdol) 50,000 units Q7D PO 08/08/17 16:45 UNV (Xalatan 0.005% Opth Soln) 1 drop HS EACH EYE 08/08/17 21:00 UNV Non-Formulary Medication 1 tab BID PO 08/08/17 21:00 UNV A/P Problem List: (1) Closed fracture of right distal humerus ICD Code: S42.401A - Unspecified fracture of lower end of right humerus, initial encounter for closed fracture Status: Acute Plan: Orthopedic surgery consulted. The patient status post Removal deep hardware right distal humerus, open reduction internal fixation right distal humerus. Pain control as per orthopedic surgery recommendations. (2) Hypothyroidism ICD Code: E03.9 - Hypothyroidism, unspecified Plan: Continue levothyroxine. Follow-up TSH as an outpatient. (3) Glaucoma ICD Code: H40.9 - Unspecified glaucoma Plan: Seems to be stable. Continue latanoprost eyedrops. (4) Hyperlipidemia ICD Code: E78.5 - Hyperlipidemia, unspecified Plan: Continue statin. Lipid profile could be checked and followed up as an outpatient. (5) HTN (hypertension) ICD Code: I10 - Essential (primary) hypertension Plan: The patient states that she was previously on medications, however she was taken off because her blood pressure was doing so well of antihypertensive medications. Stable blood pressure. Assessment and Plan DVT prophylaxis: SCDs, chemoprophylaxis as per orthopedic surgery. Discharge Planning Continue to monitor in the medical floor. Problem Qualifiers (1) Closed fracture of right distal humerus: Qualified Codes: S42.401A - Unspecified fracture of lower end of right humerus , initial encounter for closed fracture (2) HTN (hypertension): Qualified Codes: I10 - Essential (primary) hypertension Carter Uroistegui MD Aug 08, 2017 17:06
[2017-08-08] MEDS: CEFAZOLIN INJ 2,000 MG in SODIUM CHLORIDE 0.9% INJ 100 ML IV SCH (18:00)
[2017-08-08] MEDS ORDERED: ceFAZolin 2 GM PREMIX 50 ML IV SCH (18:00)
[2017-08-08] MEDS ORDERED: ERGOCALCIFEROL (VIT D2) 50,000 UNIT CAP PO SCH (18:00)
[2017-08-08 19:20] VITALS: O2SAT 94
[2017-08-08 20:25] VITALS: BP 135/69; PULSE 70; RESP 17; TEMP 97.6; O2SAT 94
[2017-08-08] MEDS ORDERED: CALCIUM/VITAMIN D 250 MG/125 U TAB PO SCH (21:00)
[2017-08-08] MEDS ORDERED: LATANOPROST 0.005% OPHT SOLN 2.5 ML BTL EACH EYE SCH (21:00)
[2017-08-08] MEDS: ATORVASTATIN 10 MG TAB PO SCH (21:13)
[2017-08-08] MEDS: CALCIUM/VITAMIN D 250 MG/125 U TAB PO SCH (21:13)
[2017-08-09 00:30] VITALS: BP 138/67; PULSE 69; RESP 17; TEMP 97.2; O2SAT 98
[2017-08-09] MEDS: CEFAZOLIN INJ 2,000 MG in SODIUM CHLORIDE 0.9% INJ 100 ML IV SCH (01:20)
[2017-08-09 04:00] VITALS: BP 128/60; PULSE 69; RESP 17; TEMP 97.8; O2SAT 95
[2017-08-09] MEDS: LEVOTHYROXINE SODIUM 50 MCG TAB PO SCH (06:08)
--- NOTE | 2017-08-09 07:49 | PD.ORT.PN ---
Subjective Post Op Day #: 1 Subjective Remarks Patient is resting comfortably in bed with minimal pain to the right upper extremity. Patient requesting to go home today. Objective Vitals Vital Signs Date Time Temp Pulse Resp B/P (MAP) Pulse Ox O2 Delivery O2 Flow Rate FiO2 08/09/17 04:00 97.8 69 17 128/60 (82) 95 08/09/17 00:30 97.2 69 17 138/67 (90) 98 08/08/17 20:25 97.6 70 17 135/69 (91) 94 08/08/17 20:13 Nasal Cannula 1.00 08/08/17 19:20 94 Nasal Cannula 1.00 08/08/17 15:43 97.3 62 18 128/65 (86) 94 08/08/17 14:52 Nasal Cannula 1.00 08/08/17 13:45 63 16 132/69 (90) 95 Nasal Cannula 2 08/08/17 13:30 62 15 135/72 (93) 96 Nasal Cannula 2 08/08/17 13:15 64 12 145/72 (96) 100 Nasal Cannula 2 08/08/17 13:00 71 17 146/72 (96) 93 Nasal Cannula 2 08/08/17 12:42 97.4 80 16 128/63 (84) 100 Nasal Cannula 2 08/08/17 08:12 Room Air 08/08/17 07:45 97.5 69 18 140/61 (87) 95 I/O 08/08/17 08/08/17 08/08/17 08/09/17 08/09/17 08/09/17 07:00 15:00 23:00 07:00 15:00 23:00 Intake Total 360 ml 500 ml 720 ml Output Total 50 ml Balance 360 ml 450 ml 720 ml Intake Oral 360 ml 720 ml IV Total 500 ml Output Estimated Blood Loss 50 ml # Voids 1 3 # Bowel Movements 0 0 Result Diagram: 08/07/17 0904 08/08/17 0457 Imaging Last 72 hours Impressions Chest X-Ray 08/07/17 1009 Signed Impressions: Service Date/Time: August 10:12 - CONCLUSION: Mild interstitial prominence in the central 3rd of both lungs without evidence of peribronchial thickening. No evidence of consolidative infiltrates. Giovanni Love MD Elbow X-Ray 08/07/17 0000 Signed Impressions: Service Date/Time: August 08:28 - CONCLUSION: 1. There appears to be transcondylar fixation with an osseous screw and 2 osseous pains. 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 2. Superimposed acute fracture through the distal humeral metadiaphysis. Fracture fragments are in bayonet apposition. Godfrey Latham MD Objective Remarks Right upper extremity: Clean dry dressings intact. Cradle sling in place. Distally intact sensation and good capillary refills. + SILT. Assessment & Plan Ortho Post Op Day #: 1 Problem List: Assessment and Plan Right distal humerus fracture removal of hardware and open reduction internal fixation POD 1 . Nonweightbearing right upper extremity sling when out of bed Passive and active assist range of motion of the elbow Plan for for discharge today to home. Follow Dr. Parekh or PA in 2 weeks Vinod Urbina Aug 09, 2017 07:49
[2017-08-09 08:00] VITALS: BP 119/59; PULSE 71; RESP 17; TEMP 97.9; O2SAT 94
[2017-08-09] MEDS: DOCUSATE SODIUM 50 MG/SENNA 8.6 MG TAB PO SCH (08:31)
[2017-08-09] MEDS: CALCIUM/VITAMIN D 250 MG/125 U TAB PO SCH (08:34)
[2017-08-09] MEDS: SODIUM CHLORIDE 0.9% FLUSH 10 ML FLUSH IV FLUSH SCH (08:34)
--- NOTE | 2017-08-09 08:36 | HHI.PR ---
Subjective Remarks Seen by Orthopedic customer support specialist with diagnosis of Right distal humerus fracture of hardware and ope reduction internal fixation POD 1, Nonweightbearing right upper extremity, sling when out of bed, Passive and active assist range of motion of the elbow Plan for for discharge today to home, Follow Dr. Parekh or CHARLES in 2 weeks. Seen in her bedroom in the presence of her no complaint. Objective Vital Signs Date Time Temp Pulse Resp B/P (MAP) Pulse Ox O2 Delivery O2 Flow Rate FiO2 08/09/17 04:00 97.8 69 17 128/60 (82) 95 08/09/17 00:30 97.2 69 17 138/67 (90) 98 08/08/17 20:25 97.6 70 17 135/69 (91) 94 08/08/17 20:13 Nasal Cannula 1.00 08/08/17 19:20 94 Nasal Cannula 1.00 08/08/17 15:43 97.3 62 18 128/65 (86) 94 08/08/17 14:52 Nasal Cannula 1.00 08/08/17 13:45 63 16 132/69 (90) 95 Nasal Cannula 2 08/08/17 13:30 62 15 135/72 (93) 96 Nasal Cannula 2 08/08/17 13:15 64 12 145/72 (96) 100 Nasal Cannula 2 08/08/17 13:00 71 17 146/72 (96) 93 Nasal Cannula 2 08/08/17 12:42 97.4 80 16 128/63 (84) 100 Nasal Cannula 2 I/O 08/08/17 08/08/17 08/08/17 08/09/17 08/09/17 08/09/17 07:00 15:00 23:00 07:00 15:00 23:00 Intake Total 360 ml 500 ml 720 ml Output Total 50 ml Balance 360 ml 450 ml 720 ml Intake Oral 360 ml 720 ml IV Total 500 ml Output Estimated Blood Loss 50 ml # Voids 1 3 # Bowel Movements 0 0 Result Diagram: 08/07/17 0904 08/08/17 0457 Imaging Last Impressions Humerus X-Ray 08/08/17 0000 Signed Impressions: Service Date/Time: Tuesday, August 08, 2017 11:59 - CONCLUSION: Intraoperative images. Giovanni Love MD Chest X-Ray 08/07/17 1009 Signed Impressions: Service Date/Time: August 10:12 - CONCLUSION: Mild interstitial prominence in the central 3rd of both lungs without evidence of peribronchial thickening. No evidence of consolidative infiltrates. Giovanni Love MD Elbow X-Ray 08/07/17 0000 Signed Impressions: Service Date/Time: August 08:28 - CONCLUSION: 1. There appears to be transcondylar fixation with an osseous screw and 2 osseous pains. 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 2. Superimposed acute fracture through the distal humeral metadiaphysis. Fracture fragments are in bayonet apposition. Godfrey Latham MD Procedures Seen by Orthopedic customer support specialist with diagnosis of Right distal humerus fracture of hardware and ope reduction internal fixation POD 1, Other Results Laboratory Tests Test 08/07/17 09:04 08/08/17 04:57 White Blood Count 7.9 TH/MM3 Red Blood Count 4.67 MIL/MM3 Hemoglobin 14.2 GM/DL Hematocrit 40.7 % Mean Corpuscular Volume 87.2 FL Mean Corpuscular Hemoglobin 30.5 PG Mean Corpuscular Hemoglobin Concent 35.0 % Red Cell Distribution Width 13.6 % Platelet Count 225 TH/MM3 Mean Platelet Volume 8.2 FL Neutrophils (%) (Auto) 63.9 % Lymphocytes (%) (Auto) 28.9 % Monocytes (%) (Auto) 5.5 % Eosinophils (%) (Auto) 1.2 % Basophils (%) (Auto) 0.5 % Neutrophils # (Auto) 5.0 TH/MM3 Lymphocytes # (Auto) 2.3 TH/MM3 Monocytes # (Auto) 0.4 TH/MM3 Eosinophils # (Auto) 0.1 TH/MM3 Basophils # (Auto) 0.0 TH/MM3 CBC Comment DIFF FINAL Differential Comment Blood Urea Nitrogen 21 MG/DL Creatinine 0.87 MG/DL Random Glucose 115 MG/DL Total Protein 7.0 GM/DL Albumin 3.8 GM/DL Calcium Level 8.9 MG/DL Alkaline Phosphatase 79 U/L Aspartate Amino Transf (AST/SGOT) 57 U/L Alanine Aminotransferase (ALT/SGPT) 36 U/L Total Bilirubin 0.5 MG/DL Sodium Level 138 MEQ/L Potassium Level 3.7 MEQ/L Chloride Level 101 MEQ/L Carbon Dioxide Level 27.6 MEQ/L Anion Gap 9 MEQ/L Estimat Glomerular Filtration Rate 63 ML/MIN Objective Remarks GENERAL: No acute distress. SKIN: No rashes, ecchymoses or lesions. HEAD: Atraumatic. Normocephalic. No temporal or scalp tenderness. EYES: Pupils equal round and reactive. Extraocular motions intact. No scleral icterus. No injection or drainage. NECK: Trachea midline. No JVD or lymphadenopathy. CARDIOVASCULAR: Regular rate and rhythm without murmurs, gallops, or rubs. RESPIRATORY: Clear to auscultation. Breath sounds equal bilaterally. No wheezes , rales, or rhonchi. GASTROINTESTINAL: Abdomen soft, non-tender, nondistended. MUSCULOSKELETAL: Right arm with sling in place. NEUROLOGICAL: Awake and alert. Cranial nerves II through XII intact. Medications and IVs Current Medications Medications (Trade) Dose Ordered Sig/Froylan Route Start Time Stop Time Status Last Admin (NS Flush) 2 ml UNSCH PRN IV FLUSH 08/07/17 13:45 (NS Flush) 2 ml BID IV FLUSH 08/07/17 21:00 08/08/17 08:01 (Tylenol) 650 mg Q4H PRN PO 08/07/17 13:45 (Zofran Inj) 4 mg Q6H PRN IVP 08/07/17 13:45 (Narcan Inj) 0.4 mg UNSCH PRN IV PUSH 08/07/17 13:45 (Alicia-Colace) 1 tab BID PO 08/07/17 21:00 08/08/17 21:13 (Milk Of Magnesia Liq) 30 ml Q12H PRN PO 08/07/17 13:45 (Senokot) 17.2 mg Q12H PRN PO 08/07/17 13:45 (Dulcolax Supp) 10 mg DAILY PRN RECTAL 08/07/17 13:45 (Lactulose Liq) 30 ml DAILY PRN PO 08/07/17 13:45 (Lipitor) 10 mg HS PO 08/07/17 21:00 08/08/17 21:13 (Synthroid) 50 mcg DAILY@0600 PO 08/08/17 06:00 08/09/17 06:08 Lactated Ringer's 1,000 ml @ 30 mls/hr Q24H PRN IV 08/08/17 00:30 08/11/17 00:29 Sodium Chloride 500 ml @ 30 mls/hr [id number] PRN IV 08/08/17 00:30 08/11/17 00:29 08/08/17 18:48 (Betadine 5% Antisepsis Kit) 1 applic MAINTENANCE SUPERVISOR MECHANICAL PRN EACH NARE 08/08/17 00:30 08/11/17 00:29 (Chlorhexidine 2% Cloth) 3 pack MAINTENANCE SUPERVISOR MECHANICAL PRN TOPICAL 08/08/17 00:30 08/11/17 00:29 (Cerritos 10-325 Mg) 1 tab Q3H PRN PO 08/08/17 12:15 (Morphine Inj) 4 mg Q3H PRN IV PUSH 08/08/17 14:00 (Oscal-D 250-125) 250 mg Q12HR PO 08/08/17 21:00 08/08/17 21:13 (Vitamin D3) 1,000 units DAILY PO 08/09/17 09:00 Miscellaneous Information ALL NURSING DEPARTME... UNSCH PRN .XX 08/08/17 12:45 08/09/17 12:44 Cefazolin Sodium 2000 mg/Sodium Chloride 120 ml @ 240 mls/hr Q8H IV 08/08/17 18:00 08/09/17 10:29 08/09/17 01:20 (Drisdol) 50,000 units Q7D PO 08/08/17 18:00 08/08/17 18:59 (Xalatan 0.005% Opth Soln) 1 drop HS EACH EYE 08/08/17 21:00 A/P Assessment and Plan (1) Closed fracture of right distal humerus ICD Code: S42.401A - Unspecified fracture of lower end of right humerus, initial encounter for closed fracture Status: Acute Plan: Orthopedic surgery consulted. Seen by Orthopedic customer support specialist with diagnosis of Right distal humerus fracture of hardware and ope reduction internal fixation POD 1, Nonweightbearing right upper extremity, sling when out of bed, Passive and active assist range of motion of the elbow Plan for for discharge today to home, Follow Dr. Parekh or [place] in 2 weeks. (2) Hypothyroidism ICD Code: E03.9 - Hypothyroidism, unspecified Plan: Continue levothyroxine. Follow-up TSH as an outpatient. (3) Glaucoma ICD Code: H40.9 - Unspecified glaucoma Plan: Seems to be stable. Continue latanoprost eyedrops. (4) Hyperlipidemia ICD Code: E78.5 - Hyperlipidemia, unspecified Plan: Continue statin. Lipid profile could be checked and followed up as an outpatient. (5) HTN (hypertension) controlled. ICD Code: I10 - Essential (primary) hypertension Plan: The patient states that she was previously on medications, however she was taken off because her blood pressure was doing so well of antihypertensive medications. Stable blood pressure. Discussed with patient, and Nurse Miss Calle. Discharge Planning Discharge Home today. Brendan Mcguire MD Aug 09, 2017 08:36
[2017-08-09] MEDS ORDERED: CHOLECALCIFEROL (VIT D3) 1000 UNIT TAB PO SCH (09:00)
[2017-08-09 12:00] VITALS: BP 133/61; PULSE 69; RESP 17; TEMP 97.5; O2SAT 96
--- NOTE | 2017-08-09 13:58 | HHI.DS ---
Discharge Summary Admission Date Aug 07, 2017 at 10:45 Discharge Date: Aug 09, 2017 Admitting Diagnosis right distal humerus fracture (1) Closed fracture of right distal humerus ICD Code: S42.401A - Unspecified fracture of lower end of right humerus, initial encounter for closed fracture Diagnosis: Principal Status: Acute (2) Hypothyroidism ICD Code: E03.9 - Hypothyroidism, unspecified Diagnosis: Secondary (3) Glaucoma ICD Code: H40.9 - Unspecified glaucoma Diagnosis: Secondary (4) Hyperlipidemia ICD Code: E78.5 - Hyperlipidemia, unspecified Diagnosis: Secondary (5) HTN (hypertension) ICD Code: I10 - Essential (primary) hypertension Diagnosis: Secondary Procedures Seen by Orthopedic process specialist with diagnosis of Right distal humerus fracture of hardware and open reduction internal fixation POD 1, Brief History - From Admission This is a 76-year-old female with past medical history significant for hypertension, hypothyroidism and hyperlipidemia who presents to [facility] after she slipped and fell on the wet floor. The patient states that she slipped on the wet floor and fell over her right elbow. The patient denies hitting her head or losing consciousness. The patient landed on her right arm elbow and had immediate severe, throbbing, nonradiating pain associated with swelling in the right elbow. The patient was seen in the emergency department and pain medication administered there, x-rays revealed a right distal humerus fracture. The patient denies chest pain, shortness of breath, fevers, chills, cough, dysuria, nausea, vomiting. CBC/BMP: 08/07/17 0904 08/08/17 0457 Significant Findings Laboratory Tests Test 08/07/17 09:04 08/08/17 04:57 Random Glucose 133 MG/DL (74-106) 115 MG/DL (74-106) Estimat Glomerular Filtration Rate 58 ML/MIN (>89) 63 ML/MIN (>89) Blood Urea Nitrogen 21 MG/DL (7-18) Aspartate Amino Transf (AST/SGOT) 57 U/L (15-37) Imaging Last Impressions Humerus X-Ray 08/08/17 0000 Signed Impressions: Service Date/Time: Tuesday, August 08, 2017 11:59 - CONCLUSION: Intraoperative images. Giovanni Love MD Chest X-Ray 08/07/17 1009 Signed Impressions: Service Date/Time: August 10:12 - CONCLUSION: Mild interstitial prominence in the central 3rd of both lungs without evidence of peribronchial thickening. No evidence of consolidative infiltrates. Giovanni Love MD Elbow X-Ray 08/07/17 0000 Signed Impressions: Service Date/Time: August 08:28 - CONCLUSION: 1. There appears to be transcondylar fixation with an osseous screw and 2 osseous pains. 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 2. Superimposed acute fracture through the distal humeral metadiaphysis. Fracture fragments are in bayonet apposition. Godfrey Latham MD PE at Discharge GENERAL: No acute distress. SKIN: No rashes, ecchymoses or lesions. HEAD: Atraumatic. Normocephalic. No temporal or scalp tenderness. EYES: Pupils equal round and reactive. Extraocular motions intact. No scleral icterus. No injection or drainage. NECK: Trachea midline. No JVD or lymphadenopathy. CARDIOVASCULAR: Regular rate and rhythm without murmurs, gallops, or rubs. RESPIRATORY: Clear to auscultation. Breath sounds equal bilaterally. No wheezes , rales, or rhonchi. GASTROINTESTINAL: Abdomen soft, non-tender, nondistended. MUSCULOSKELETAL: Right arm with sling in place. NEUROLOGICAL: Awake and alert. Cranial nerves II through XII intact. Hospital Course Seen by Orthopedic process specialist with diagnosis of Right distal humerus fracture of hardware and ope reduction internal fixation POD 1, Nonweightbearing right upper extremity, sling when out of bed, Passive and active assist range of motion of the elbow Plan for for discharge today to home, Follow Dr. Parekh or CHARLES in 2 weeks. Seen in her bedroom in the presence of her no complaint. Assessment and Plan (1) Closed fracture of right distal humerus ICD Code: S42.401A - Unspecified fracture of lower end of right humerus, initial encounter for closed fracture Status: Acute Plan: Orthopedic surgery consulted. Seen by Orthopedic process specialist with diagnosis of Right distal humerus fracture of hardware and ope reduction internal fixation POD 1, Nonweightbearing right upper extremity, sling when out of bed, Passive and active assist range of motion of the elbow Plan for for discharge today to home, Follow Dr. Parekh or [place] in 2 weeks. (2) Hypothyroidism ICD Code: E03.9 - Hypothyroidism, unspecified Plan: Continue levothyroxine. Follow-up TSH as an outpatient. (3) Glaucoma ICD Code: H40.9 - Unspecified glaucoma Plan: Seems to be stable. Continue latanoprost eyedrops. (4) Hyperlipidemia ICD Code: E78.5 - Hyperlipidemia, unspecified Plan: Continue statin. Lipid profile could be checked and followed up as an outpatient. (5) HTN (hypertension) controlled. ICD Code: I10 - Essential (primary) hypertension Plan: The patient states that she was previously on medications, however she was taken off because her blood pressure was doing so well of antihypertensive medications. Stable blood pressure. Discussed with patient, and Nurse Miss Calle. Discharge Planning Discharge Home today. Pt Condition on Discharge: Good Discharge Disposition: Discharge Home Discharge Time: <= 30 minutes Discharge Instructions DIET: Follow Instructions for: Heart Healthy Diet Activities you can perform: Regular-No Restrictions Other Activity Instructions: no weightbearing on Right upper extremity walk with sling on right arm Brendan Mcguire MD Aug 09, 2017 13:58
== END 2017-08-09 13:12 | disposition home or self-care (01) | DRG 494 ==
LOC: NEPE 07:56 → NEDA 10:45 → N06A 14:41
PROVIDERS: ADMIT Internal Medicine; ATTEND Internal Medicine
PROC: 0PPF04Z Removal of Internal Fixation Device from Right Humeral Shaft, Open Approach (ICD-10-PCS; 2017-08-08)
PROC: 0PSF04Z Reposition Right Humeral Shaft with Internal Fixation Device, Open Approach (ICD-10-PCS; principal; 2017-08-08 10:49)
DX: S42.401A Unspecified fracture of lower end of right humerus, initial encounter for closed fracture (principal); I10 Essential (primary) hypertension; E78.5 Hyperlipidemia, unspecified; E03.9 Hypothyroidism, unspecified; H40.9 Unspecified glaucoma; M19.121 Post-traumatic osteoarthritis, right elbow; W01.0XXA Fall on same level from slipping, tripping and stumbling without subsequent striking against object, initial encounter; Y92.002 Bathroom of unspecified non-institutional (private) residence as the place of occurrence of the external cause
CPT/HCPCS: 71045; 73060; 73070; 76000; 80048; 80053; 85025; 93005; 94150; 96374; 96375; 96376; C1713; J0131; J0690; J1100; J2270; J2405; J2710; J3010; J3370; J7040; J8501